=== PATIENT | female | born 1965 | race Caucasian/White ===

== ENCOUNTER 2019-09-28 22:49 | Observation (INO) | payer OTHER, SELFPAY ==
[2019-09-28 22:56] VITALS: BP 148/101; PULSE 67; RESP 18; TEMP 36.8; O2SAT 98; BMI 33.9
--- NOTE | 2019-09-28 22:58 | DI.RAD.S_ITS ---
PROCEDURE: XR CHEST 1V INDICATIONS: Chest pain TECHNIQUE: One view of the chest was acquired. COMPARISON: None. FINDINGS: Surgical changes and devices: Surgical clips in the left breast and axilla.. Lungs and pleura: Lungs are clear. No pleural effusions or pneumothorax. Mediastinum: Mediastinal contours appear normal. Heart size is normal. Bones and chest wall: No suspicious bony lesions. Overlying soft tissues appear unremarkable. IMPRESSION: No acute cardiopulmonary disease process. Dictated by: Veronika Fountain MD, PhD on 09/29/2019 at 8:22 Approved by: Veronika Fountain MD, PhD on 09/29/2019 at 8:23
--- NOTE | 2019-09-28 23:09 | ED_ITS ---
HPI - Chest Pain General Chief Complaint: Chest Pain Stated Complaint: CHEST PAIN Time Seen by Provider: 09/28/19 22:57 Source: patient Mode of arrival: Ambulatory Limitations: no limitations History of Present Illness HPI narrative: 54-year-old otherwise healthy female without any prior cardiac history here for evaluation of left-sided chest pressure and also tingling in her left arm. Patient states the pressure does radiate to her back. It is not a ripping or tearing sensation is a pressure sensation. No change with movement or palpation or breathing. Has never had anything like this before. She did take an aspirin prior to arrival here in the emergency department. She states she was sitting at work when the symptoms developed. They started within the past 2 hours prior to arrival to the ER. Has not changed since the onset of the symptoms. Related Data Home Medications Medication Instructions Recorded Confirmed Singulair 09/29/19 alprazolam [Xanax] 0.5 mg PO DAILY 09/29/19 09/29/19 aspirin 81 mg PO DAILY 09/29/19 09/29/19 gabapentin 800 mg PO BID 09/29/19 09/29/19 ibuprofen 800 mg PO BID 09/29/19 09/29/19 levothyroxine 09/29/19 omeprazole 20 mg PO DAILY 09/29/19 09/29/19 trazodone 09/29/19 venlafaxine [Effexor XR] 37.5 mg PO BEDTIME 09/29/19 09/29/19 Allergies Allergy/AdvReac Type Severity Reaction Status Date / Time No Known Drug Allergies Allergy Verified 09/28/19 23:47 Review of Systems Constitutional Constitutional: Denies fever(s) Cardiovascular Cardiovascular: Reports chest pain, Denies syncope, Denies rapid heart rate, Denies edema, Denies palpitations, Denies dyspnea and Denies dyspnea on exertion Respiratory Respiratory: Denies dyspnea and Denies dyspnea on exertion Gastrointestinal Gastrointestinal: Denies abdominal pain, Denies nausea and Denies vomiting Genitourinary Genitourinary: Denies dysuria Musculoskeletal Musculoskeletal: Denies myalgias and Denies arthralgias Integumentary/Breasts Skin/Breast: Denies rash Neurologic Neurologic: Denies behavioral changes and Denies syncope Psychiatric Psychiatric: Denies behavioral changes Endocrine Endocrine: Denies palpitations Hematologic/Lymphatic Hematologic/Lymphatic: Denies easy bleeding and Denies easy bruising Patient History Medical History Gastroesophageal reflux disease (Acute) Hypothyroid (Acute) Social History Smoking Status: Current every day smoker tobacco type: cigarettes alcohol intake frequency: a few times a month Substance Use Type: marijuana Exam Initial Vital Signs Initial Vital Signs: Vital Signs Temperature 98.3 F 09/28/19 22:56 Pulse Rate 67 09/28/19 22:56 Respiratory Rate 18 09/28/19 22:56 Blood Pressure 148/101 H 09/28/19 22:56 Pulse Oximetry 98 09/28/19 22:56 Const General: cooperative, comfortable and well developed Orientation: alert, awake and oriented x3 HENMT Head: normal to inspection and normocephalic Resp Effort & Inspection: normal respiratory effort Auscultation: clear to auscultation bilaterally Cardio Rate: regular rate Rhythm: regular rhythm Pulses: radial pulses present GI Inspection: non-distended Palpation: soft, No firm and No tender Skin Lesions: no lesions Rashes: no rashes Neuro General: alert, awake and oriented x3 Cognition: normal cognition Speech: speech normal Motor: muscle tone normal throughout Sensory Exam: no sensory deficits noted Extrem General: normal to inspection and capillary refill normal Psych Appearance: grossly normal and well kempt Scores GCS Jeanie coma scale eye opening: Spontaneous Jeanie coma scale verbal response: Orientated Jeanie coma scale motor response: Obey commands Jeanie coma scale total score: 15 HEART Score Heart Score history: Highly Suspicious Heart Score EKG: Normal Heart Score Age: 45-64 years old Heart Score risk factors: No known risk factors Heart Score troponin: < or = to normal limit Heart Score Total: 3 Course Orders Ordered: ED Orders 09/28/19 22:55 EKG-12 Lead Routine 09/28/19 22:58 XR chest 1V Stat EKG-12 Lead Stat 09/28/19 23:05 Complete Blood Count AUTO DIFF Stat Comprehensive Metabolic Panel Stat Lipase Stat Troponin & CK Cardiac Panel Stat 09/28/19 23:56 EKG-12 Lead Stat 09/29/19 00:02 EKG-12 Lead Routine Sodium Chloride (Normal Saline 0.9%) 1,000 mls @ 150 mls/hr IV CONT ABDULKADIR Last Admin: 09/28/19 23:27 Dose: 150 mls/hr Documented by: SAL Nitroglycerin (Nitrostat) 0.4 mg SL [id number] PRN PRN Reason: Chest Pain Last Admin: 09/28/19 23:50 Dose: 0.4 mg Documented by: Admin: 09/28/19 23:36 Dose: 0.4 mg Documented by: SAL Discontinued Medications Aspirin (Aspirin Chew) 324 mg PO NOW ONE Stop: 09/28/19 22:59 Last Admin: 09/28/19 23:28 Dose: Not Given Documented by: SAL Nitroglycerin (Nitro-Bid) 1 inch TOP NOW ONE Stop: 09/28/19 23:55 Last Admin: 09/28/19 23:55 Dose: 1 inch Documented by: SAL Vital Signs Vital signs: Vital Signs - 8 hr 09/28/19 22:56 09/28/19 23:35 09/28/19 23:36 Temperature 98.3 F Pulse Rate 67 58 L 64 Respiratory Rate 18 24 Blood Pressure 148/101 H 143/92 H Blood Pressure [Left Arm] 143/92 H Pulse Oximetry 98 94 09/28/19 23:50 09/28/19 23:55 09/29/19 00:05 Temperature Pulse Rate 61 63 58 L Respiratory Rate 18 Blood Pressure 123/64 123/64 Blood Pressure [Left Arm] 117/64 Pulse Oximetry 100 09/29/19 00:19 Temperature Pulse Rate 57 L Respiratory Rate 18 Blood Pressure Blood Pressure [Left Arm] 117/64 Pulse Oximetry 94 MDM - Chest Pain Lab Data Attestation: I reviewed the patient's lab results. Result diagrams: 09/28/19 23:05 09/28/19 23:05 Labs: Lab Results 09/28/19 09/28/19 Range/Units 23:05 23:05 WBC 5.6 (4.5-11.0) X10^3/uL RBC 4.23 (4.0-5.2) X10^6/uL Hgb 15.0 (12.0-16.0) g/dL Hct 43.0 (36-46) % MCV 101.7 H (80-100) fL MCH 35.4 H (26-34) PG MCHC 34.8 (30-36) % RDW 12.6 (11.6-14.8) % Plt Count 199 (150-400) X10^3/uL Neut % (Auto) 50.1 (50-75) % Lymph % (Auto) 34.6 (25-40) % [place] % (Auto) 10.6 (3-14) % Eos % (Auto) 3.9 (2-4) % Baso % (Auto) 0.8 (0-2) % Neut # (Auto) 2800 (3378-3621) /uL Lymph # (Auto) 1900 (1541-0357) /uL [place] # (Auto) 600 (0-900) /uL Eos # (Auto) 200 (0-450) /uL Baso # (Auto) 0 (0-100) /uL Sodium 139 (137-145) mmol/L Potassium 3.7 (3.4-5.1) mmol/L Chloride 107 (98-107) mmol/L Carbon Dioxide 25 (22-32) mmol/L BUN 18 H (7-17) mg/dL Creatinine 1.10 H (0.52-1.04) mg/dL Estimated GFR 52.0 L (>60) mL/min BUN/Creatinine Ratio 16.4 (6-22) Glucose 108 H (70-100) mg/dL Calcium 10.1 (8.4-10.2) mg/dL Total Bilirubin 0.7 (0.2-1.3) mg/dL AST 31 (14-36) IU/L ALT 24 (<35) IU/L Alkaline Phosphatase 95 (38-126) U/L Total Creatine Kinase 150 H (30-135) U/L CK-MB (CK-2) 1.08 (<2.37) ng/mL CK-MB (CK-2) Rel Index 0.7 L (1.5-5.0) % Troponin I < 0.012 (0.01-0.034) ng/mL Total Protein 7.5 (6.3-8.2) g/dL Albumin 4.4 (3.5-5.0) g/dL Globulin 3.1 (1.7-4.1) g/dL Albumin/Globulin Ratio 1.4 (1.0-2.8) Lipase 162 (23-300) U/L Imaging Data Chest x-ray: Attestation: I personally reviewed and interpreted this imaging study as follows: My impression: No acute changes, no focal consolidations, no pneumonia ECG Data Attestation: I personally reviewed and interpreted this ECG as follows: Prior ECG tracings: not available for review Interpretation: Initial EKG Sinus rhythm Ventricular rate is 68 Has artifact Repeat EKG Sinus rhythm Ventricular rate is 61 Incomplete right bundle-branch block Normal QRS No ST T wave changes MDM Narrative Medical decision making narrative: Patient has no ST changes on her EKG. Troponin was negative however this was less than 3 hours after the onset of her symptoms. She did take an aspirin prior to arrival. She was expressing continue pains she was given 1 sublingual nitroglycerin which she states improved her pain from an 8/10 to a 4/10. This then started to worsen again she was given another sublingual nitro which again improved her symptoms. She was then given nitro paste which improved her symptoms tremendously. I do have a low suspicion for PE. Low suspicion for dissection. I do have a higher suspicion for ACS given her symptoms and her response to the nitro. I did discuss the case with Dr. Alexandra with cardiology at [facility] who stated that given the presentation that I told him and her EKG and a negative troponin that he did not feel she needed to be had a facility with catheterization capability. He thought that patient could be managed at our hospital with trending of the troponins and echocardiogram and stress testing tomorrow. He stated that they would be happy to be available for consultation. He stated they be happy to be available for transfer if patient's troponins were to be elevated or she were to have EKG changes or positive stress test. I discussed this with the patient. She expressed understanding. I did discuss the case with the night nurse practitioner who will admit the patient for further evaluation and treatment Discharge Plan Departure Patient Disposition: Admitted as Observation Clinical Impression: Chest pain Admit Date/Time: 09/29/19 00:35 Admit Provider: Berhane Freeman
--- NOTE | 2019-09-28 23:12 | PC.NURSE ---
arrived amblitory into er. reports waking up at 9pm for work and feeling not right. arrived to work at 11pm and her staff engouraged her to come in and be evaluated. she stated that the pain goes from her left chest and radiates into her back. Not reproducable upon palpation. Took 1 full dose aspirin befor coming in.
[2019-09-28 23:15] LABS: Add Manual Diff / Slide Review NO; Basophils Absolute Auto 0 /uL (0-100); Basophils Percent Auto 0.8 % (0-2); Eosinophils Absolute Auto 200 /uL (0-450); Eosinophils Percent Auto 3.9 % (2-4); Lymphocytes Absolute Auto 1900 /uL (1100-4500); Lymphocytes Percent Auto 34.6 % (25-40); Mean Corpuscular HGB Conc 34.8 % (30-36); Mean Corpuscular Hemoglobin 35.4 PG (26-34); Mean Corpuscular Volume 101.7 fL (80-100); Monocytes Absolute Auto 600 /uL (0-900); Monocytes Percent Auto 10.6 % (3-14); Neutrophils Absolute Auto 2800 /uL (1500-7000); Neutrophils Percent Auto 50.1 % (50-75); Platelet Count 199 X10^3/uL (150-400); Red Blood Cell Count 4.23 X10^6/uL (4.0-5.2); Red Cell Distribution Width 12.6 % (11.6-14.8); White Blood Cell Count 5.6 X10^3/uL (4.5-11.0)
[2019-09-28 23:23] LABS: Alanine Aminotransferase 24 IU/L (<35); Albumin 4.4 g/dL (3.5-5.0); Albumin Globulin Ratio 1.4 (1.0-2.8); Alkaline Phosphatase 95 U/L (38-126); Aspartate Aminotransferase 31 IU/L (14-36); BUN Creatinine Ratio 16.4 (6-22); Bilirubin Total 0.7 mg/dL (0.2-1.3); Blood Urea Nitrogen 18 mg/dL (7-17); Calcium 10.1 mg/dL (8.4-10.2); Carbon Dioxide 25 mmol/L (22-32); Chloride 107 mmol/L (98-107); Creatine Kinase 150 U/L (30-135); Globulin 3.1 g/dL (1.7-4.1); Glucose 108 mg/dL (70-100); HEMOLYSIS < 15 (0-50); Lipase 162 U/L (23-300); Potassium 3.7 mmol/L (3.4-5.1); Sodium 139 mmol/L (137-145); Total Protein 7.5 g/dL (6.3-8.2)
[2019-09-28] MEDS: SODIUM CHLORIDE 0.9% 1,000 ML 150 ML IV (23:27)
[2019-09-28 23:34] LABS: Troponin I < 0.012 ng/mL (0.01-0.034)
[2019-09-28 23:35] VITALS: BP 143/92; PULSE 58; RESP 24; O2SAT 94
[2019-09-28 23:36] VITALS: BP 143/92; PULSE 64
[2019-09-28] MEDS: NITROGLYCERIN 0.4 MG SL TAB SL ×2 (23:36→23:50)
[2019-09-28 23:38] LABS: CKMB % Relative Index 0.7 % (1.5-5.0); Creatine Kinase MB 1.08 ng/mL (<2.37)
[2019-09-28 23:50] VITALS: BP 123/64; PULSE 61
--- NOTE | 2019-09-28 23:53 | PC.NURSE ---
patient reports 8/10 chest pain reduced to 4/10 and started to increase again. second nitro given
[2019-09-28 23:55] VITALS: BP 123/64; PULSE 63
[2019-09-28] MEDS: NITROGLYCERIN OINT 1 INCH/GM OINT...G. TOP (23:55)
--- NOTE | 2019-09-28 23:57 | PC.NURSE ---
provider notified of response to nitro dose #1, order for nitro paste given
[2019-09-29] VITALS (13 sets, daily range): BP systolic 115–139; BP diastolic 64–76; PULSE 52–81; RESP 16–19; TEMP 36.1–36.8; O2SAT 94–100; BMI 33.9
--- NOTE | 2019-09-29 01:15 | PC.NURSE ---
normal saline to continue in acute care
--- NOTE | 2019-09-29 04:21 | P.HP_ITS ---
History of Present Illness History of Present Illness Date Patient Seen: 09/29/19 Time Patient Seen: 04:21 Chief complaint: CHEST PAIN Narrative: The patient is a 54-year-old female with PMH of GERD, hypothyroidism, tobacco dependence (current every day smoker), obesity (BMI 33.9), HLD, sarcoidosis, COPD / asthma, breast cancer (s/p lumpectomy, 10 counts of RTx, and chemotherapy; in remission x5 yrs), chemotherapy induced neuropathy, chronic back pain, insomnia, anxiety and depression. Patient presents out of concern for chest pain. Symtoms noted at between 8:30- 9:00 pm upon awakening. Patient reports waking up with left shoulder / left upper extremity ache. This progressed to pressure like discomfort in the chest w/ radiation to the back. Patient went to work. BP was checked at work on two separate occasions and noted to be 150/100 mmHg and 160/100 mmHg. Chest pain has persisted. Describes chest discomfort as an ache with pressure-like qual ity. She has taken a full dose of ASA and presented to the ED for further evaluation. Denies prior h/o HTN, dysrhythmia, or valvular heart disease. Reports associated symptoms of dizziness (with head rotation) and nausea (developed in the ED). Denies headache, change in vision, palpitations, diap horesis, or vomiting. Denies abdominal pain, diarrhea, and blood loss per rectum. Denies extremity heaviness, unilateral extremity weakness, or paresthesia. Denies peripheral edema, orthopnea, or PND. She does note some degree dyspnea with exertion, which has been worse in the past 2 days. Reports underlying history of sarcoidosis. She does follow with pulmonology, Dr. Bush. Reports history of tobacco dependence 1/2-1 ppd for 25 years. Currently smokes half pack per day. Recently has been wheezy. At home uses QVAR, but not consistently. Patient reports prior history of a stress test, approximately 5+ years ago for an episode of chest pain. She is unable to recall the results. No prior history of a cardiac catheterization. Family history significant for heart disease and stroke. Patient has taken 325 mg of ASA prior to ED presentation. She does take 81 mg ASA routinely. Reports underlying history of GERD, partially controlled. Patient uses 800 mg b.i.d. of ibuprofen daily for chronic back pain / bulging disks. Reports a history of anxiety and depression with co-morbid insomnia. At present time having home stressors. Reports step mother w/ a recent stroke and elderly father with memory issues, patient has been assisting with care. Denies having similar sensation in the past. Chest discomfort was relieved with two doses of nitro. Initial ED work-up revealed negative troponin. One of the EKG's w/ mild ST elevation. Patient chest pain free for the remainder of the diet. ED Presentation & Work-Up VS, 09/28/2019 at 2256. T 98.3F BP 148/101 HR 67 RR 18 SpO2 98% on RA. Labs, 09/28/19 @ 2305 WBC 5.6 Hgb 15.0 PLT 199 Na 139 K 3.7 Cl 107 Ca 10.1 ALB 4.4 Co2 25 BUN 18 Cr 1.1 GFR 52 BUN:Cr 16.4 GLU 108 TBili 0.7 AST 31 ALT 24 Lipase 162 CK (total) 150 Trop < 0.012 CXR (preliminary findngs), no acute cardiopulmonary findings EKG #1, 09/28 @ SR, incomplete R-BBB, ST elevation EKG #2, 09/29 @ 0002, SR (v-rate 61), incomplete R-BBB Patient History Medical History (Updated 09/29/19 @ 05:58 by SHILA Starr) Anxiety and depression (Chronic) Breast cancer (Chronic) Chemotherapy-induced neuropathy (Chronic) Chronic back pain (Chronic) COPD with asthma (Chronic) Gastroesophageal reflux disease (Acute) Hypothyroid (Acute) Insomnia secondary to depression with anxiety (Chronic) Sarcoidosis (Chronic) Surgical History (Updated 09/29/19 @ 05:58 by SHILA Starr) S/P lumpectomy, left breast (Acute) Family & Social History Family History (Updated 09/29/19 @ 06:00 by SHILA Starr) Mother Stroke Sister Heart attack Social History: household members significant other Prior Living Arrangements House Safety & Behavioral: Feels Safe in Current Yes Environment Been Physically Hurt or No Threatened By a Person Suicidal Ideation Description None Suicide Plan Description No Plan Tobacco & Substance use: Tobacco type cigarettes,cannabis/marijuana Smoking Status Current every day smoker alcohol intake frequency a few times a month Substance Use Type marijuana Meds Home Medications and Allergies Home Medications Medication Instructions Recorded Confirmed Type alprazolam [Xanax] 0.5 mg PO DAILY 09/29/19 09/29/19 History aspirin 81 mg PO DAILY 09/29/19 09/29/19 History gabapentin 900 mg PO BID 09/29/19 09/29/19 History ibuprofen 800 mg PO BID 09/29/19 09/29/19 History levothyroxine 137 mcg PO DAILY 09/29/19 09/29/19 History montelukast [Singulair] 10 mg PO BEDTIME 09/29/19 09/29/19 History omeprazole 20 mg PO DAILY 09/29/19 09/29/19 History rosuvastatin 40 mg PO BEDTIME 09/29/19 09/29/19 History trazodone 50 mg PO BEDTIME 09/29/19 09/29/19 History venlafaxine [Effexor XR] 37.5 mg PO BEDTIME 09/29/19 09/29/19 History Allergies Allergy/AdvReac Type Severity Reaction Status Date / Time No Known Drug Allergies Allergy Verified 09/28/19 23:47 Review of Systems Review of Systems ROS Unobtainable: All systems reviewed & are unremarkable except as noted in HPI and below Exam Vital Signs (past 8 hours): - 09/28/19 22:56 09/28/19 23:35 09/28/19 23:36 Temperature 98.3 F Pulse Rate 67 58 L 64 Respiratory Rate 18 24 Blood Pressure 148/101 H 143/92 H Blood Pressure [Left Arm] 143/92 H Pulse Oximetry 98 94 09/28/19 23:50 09/28/19 23:55 09/29/19 00:05 Temperature Pulse Rate 61 63 58 L Respiratory Rate 18 Blood Pressure 123/64 123/64 Blood Pressure [Left Arm] 117/64 Pulse Oximetry 100 09/29/19 00:19 09/29/19 01:28 Temperature 97.0 F L Pulse Rate 57 L 55 L Respiratory Rate 18 16 Blood Pressure 117/72 Blood Pressure [Left Arm] 117/64 Pulse Oximetry 94 94 Oxygen Delivery Method Room Air Oxygen Flow Rate 0 Narrative Exam Narrative: Constitutional: NAD Neurologic: AOx3, no focal neurological deficits Head: NC, AT Eyes: PERRL, EOMI, Ears: external ears normal, no otorrhea Nose: external nose normal, no rhinorrhea or epistaxis Throat: MMM, oropharynx w/o exudate Neck: no masses, lymphadenopathy, or JVD Chest / Respiratory: equal chest rise, unlabored respiratory effort, no tachypnea CTAB no rrw Heart / CV: S1S2, no murmur Abdomen / GI: round, NT, ND, + BS, no organomegaly : no suprapubic tenderness, no CVA Peripheral / Vascular: warm to touch, DP and PT pulses palpable, no edema Musc: full ROM of upper and lower extremities, adequate muscle tone and bulk Skin: no ecchymosis or suspicious lesions / ulcers Objective Labs Result Diagrams: 09/29/19 05:48 09/29/19 05:48 Labs: Laboratory Results - last 24 hr 09/28/19 09/28/19 23:05 23:05 WBC 5.6 RBC 4.23 Hgb 15.0 Hct 43.0 MCV 101.7 H MCH 35.4 H MCHC 34.8 RDW 12.6 Plt Count 199 Neut % (Auto) 50.1 Lymph % (Auto) 34.6 [place] % (Auto) 10.6 Eos % (Auto) 3.9 Baso % (Auto) 0.8 Neut # (Auto) 2800 Lymph # (Auto) 1900 [place] # (Auto) 600 Eos # (Auto) 200 Baso # (Auto) 0 Sodium 139 Potassium 3.7 Chloride 107 Carbon Dioxide 25 BUN 18 H Creatinine 1.10 H Estimated GFR 52.0 L BUN/Creatinine Ratio 16.4 Glucose 108 H Calcium 10.1 Total Bilirubin 0.7 AST 31 ALT 24 Alkaline Phosphatase 95 Total Creatine Kinase 150 H CK-MB (CK-2) 1.08 CK-MB (CK-2) Rel Index 0.7 L Troponin I < 0.012 Total Protein 7.5 Albumin 4.4 Globulin 3.1 Albumin/Globulin Ratio 1.4 Lipase 162 Assessment & Plan Assessment & Plan narrative: Patient is being admitted under observation status for evaluation of chest pain Chest pain, acute, present on admission, active S/S aching, pressure-like chest discomfort with radiation to left upper extremities and posterior torso. Relieved with 2 doses of nitro. EKG mild ST elevation, repeat negative. SR w/ R-BBB. Trop negative RF: HLD, obesity, 25 PYH of tobacco dependence, family h/o heart disease (sister w/ [place] at age 50). On ASA 81 mg QD. HEART Score 5 (hx 1+, initial EKG 1+, age 1+, RF >/3 2+, initial trop 0) TIME 2 of 3 (RF 1, ASA past 7 days 1, EKG (questionable ? if >/ 0.[address] deviation)) Patient had a stress test 5+ years ago for an episode of chest pain. - Telemetry monitoring - Trend troponin - Risk stratify: A1C, FLP - Keep NPO for stress test in am - Received 324 mg ASA prior to ED. Continue ASA 81 mg QD - Stress Test - Consider echo in the outpatient setting - F/U w/ cardiology on discharge BEN, suspected, present on admission, active - Cr 1.1 GFR, elevated for age and body mass. Current use of NSAIDs, ibuprofen 800 mg BID. Current smoker (25 PYH tobacco use). No h/o HTN or DM. At present time hypovolemic. - IVF, started on NS at 150 ml/hr in ED, will decrease rate to 100 ml/hr - UA to check for sediment and proteinuria - Recommend d/c use of NSAIDs altogether. Consider tylenol 1000 mg Q8H prn for back pain. - AM lab - BMP, Mg Exertional dyspnea, acute, present on admission, active - likely in the setting of COPD exacerbation; however, does have h/o pulm sarcoidosis - echo COPD w/ asthma, acute mild exacerbation, present on admission, active Extremely wheezy diminished on exam. Inconsistent with routine use of bronchodilators. At home on QVAR and albuterol. H/O pulmonary sarcoidosis. - Consult RT - QVAR 1 puff BID. - Scheduled DuoNeb Q6HWA x24 hours, then may convert to RATE protocol - Resume wanted lieu cast 10 mg daily, will schedule to be taken at night Hypovolemia, acute, present on admission, active - IVF Hypothyroidism, chronic condition, present on admission, active - Check TSH - Resume [employer] regimen of levothyroxine 137 mcg QD Hyperlipidemia, chronic condition, present on admission, active - FLP in am - Resume PT regimen of rosuvastatin 40 mg q.d. GERD, chronic condition, present on admission, active / partially controlled - Resume PT regimen of omeprazole 20 mg BID - Stop NSAID and tobacco use. Highly recommended. Anxiety with depression, chronic condition, present on admission, active / controlled - Resume [employer] regimen of venlofaxine 37.5 mg BID - Hold trazodone (takes for insomnia) Chemotherapy induced neuropathy, chronic condition, present on admission, stable - On gabapentin 900 mg BID. Hold for now d/t BEN. History of breast cancer, 5+ years in remission (by report), chronic condition, stable -treated with lumpectomy, radiation, chemotherapy Code status discussed with patient. Wishes to be full code. No formal health directive. Designates Home medications reviewed and reconciled accordingly. Patient's external record of medications filled also reviewed.
[2019-09-29] MEDS: LEVOTHYROXINE 137 MCG TABLET PO (06:03)
[2019-09-29 06:10] LABS: Add Manual Diff / Slide Review NO; Basophils Absolute Auto 0 /uL (0-100); Basophils Percent Auto 0.8 % (0-2); Eosinophils Absolute Auto 200 /uL (0-450); Eosinophils Percent Auto 3.6 % (2-4); Hemoglobin 14.2 g/dL (12.0-16.0); Lymphocytes Absolute Auto 1900 /uL (1100-4500); Lymphocytes Percent Auto 36.2 % (25-40); Mean Corpuscular HGB Conc 34.6 % (30-36); Mean Corpuscular Hemoglobin 35.6 PG (26-34); Mean Corpuscular Volume 102.9 fL (80-100); Monocytes Absolute Auto 600 /uL (0-900); Monocytes Percent Auto 10.6 % (3-14); Neutrophils Absolute Auto 2600 /uL (1500-7000); Neutrophils Percent Auto 48.8 % (50-75); Platelet Count 191 X10^3/uL (150-400); Red Blood Cell Count 3.98 X10^6/uL (4.0-5.2); Red Cell Distribution Width 12.7 % (11.6-14.8); White Blood Cell Count 5.3 X10^3/uL (4.5-11.0)
[2019-09-29 06:16] LABS: Hemoglobin A1C% w Est Avg Glu 5.3 % (4.0-6.0)
[2019-09-29 06:17] LABS: Blood Urea Nitrogen 17 mg/dL (7-17); Calcium 9.5 mg/dL (8.4-10.2); Carbon Dioxide 26 mmol/L (22-32); Chloride 109 mmol/L (98-107); Cholesterol 179 mg/dL (140-199); Glucose 96 mg/dL (70-100); HDL Cholesterol 50 mg/dL (40-60); HEMOLYSIS < 15 (0-50); LDL Cholesterol Calculated 100 mg/dL (<100); Potassium 4.5 mmol/L (3.4-5.1); Sodium 141 mmol/L (137-145); Triglycerides 145 mg/dL (35-150)
[2019-09-29 06:28] LABS: Troponin I < 0.012 ng/mL (0.01-0.034)
--- NOTE | 2019-09-29 06:41 | PC.ADMIT ---
Safe hand off from Santosh WINKLER, ED. Pt arrived on the unit at 0105 was able to transfer from stretcher to bed ambulating w/ 1 person assist. VSS, exception is pt has been shanda. Pt is on tele: 1st degree AV, Sinus shanda. Pt has nitro patch on Left upper chest. Pain level 2/10. Normal saline at 100ml/hr. Pt was educated about use of call light, bed is low and locked. [id number] Admission Note: The patient,Sweta Chen,54 y/o, was given written information regarding hospital policies, unit procedures and contact persons. Patient's smoking status: Current every day smoker. Vital Signs - 8 hr 09/28/19 22:56 09/28/19 23:35 09/28/19 23:36 Temperature 98.3 F Pulse Rate 67 58 L 64 Respiratory Rate 18 24 Blood Pressure 148/101 H 143/92 H Blood Pressure [Left Arm] 143/92 H Pulse Oximetry 98 94 09/28/19 23:50 09/28/19 23:55 09/29/19 00:05 Temperature Pulse Rate 61 63 58 L Respiratory Rate 18 Blood Pressure 123/64 123/64 Blood Pressure [Left Arm] 117/64 Pulse Oximetry 100 09/29/19 00:19 09/29/19 01:28 09/29/19 05:24 Temperature 97.0 F L 97.6 F Pulse Rate 57 L 55 L 52 L Respiratory Rate 18 16 18 Blood Pressure 117/72 122/72 Blood Pressure [Left Arm] 117/64 Pulse Oximetry 94 94 95
[2019-09-29 06:48] LABS: Thyroid Stimulating Hormone 0.03 uIU/mL (0.47-4.68)
--- NOTE | 2019-09-29 07:18 | DI.ECHO.S_ITS ---
[facility] +---------+ : : [address] : : : : [id number] : : : : Phone: [phone]+ Echocardiogram Report + + :Name: DICKSON FUNEZ Study Date: 09/29/2019 Height: 66 in : :[facility] Weight: 212 lb : : Gender: Female BSA: 2.1 m2 : :: 1965 Age: 54 yrs BP: 115/71 mmHg: :Reason For Study: EXERTIONAL DYSPNEA : :Ordering Physician: Matt : :Hospitalist Performed By: Jennifer Vital : :Referring: [place] : + + Interpretation Summary The left ventricle is normal in size. The ejection fraction is estimated to be 55-60%. There has been no significant change since the previous study. There are no focal wall motion abnormalities. Diastolic parameters suggest probable normal left ventricular diastolic function and normal filling pressures. The right ventricle is normal in size and function. Pulmonary artery pressures cannot be estimated because of the lack of a measurable TR jet velocity. Both atria are normal in size. There is no significant valvular heart disease. The aortic root is normal size. Procedure: A two-dimensional transthoracic echocardiogram with color flow and Doppler was performed. The study quality was technically adequate. Comparison is made with the echocardiogram of 08/20/2014. The patient was in normal sinus rhythm during the exam. Left Ventricle: The left ventricle is normal in size. There is normal left ventricular wall thickness. There is no ventricular septal defect visualized. The ejection fraction is estimated to be 55-60%. There has been no significant change since the previous study. There are no focal wall motion abnormalities. Diastolic parameters suggest probable normal left ventricular diastolic function and normal filling pressures. Right Ventricle: The right ventricle is normal in size and function. Atria: Both atria are normal in size. There is no Doppler evidence for an interatrial shunt. Mitral Valve: There is mild mitral annular calcification. There is trace mitral regurgitation. Aortic Valve: The aortic valve opens well. No aortic regurgitation is present. Tricuspid Valve: The tricuspid valve is not well visualized, but is grossly normal. There is a trace or physiologic amount of tricuspid regurgitation. Pulmonary artery pressures cannot be estimated because of the lack of a measurable TR jet velocity. Pulmonic Valve: The pulmonic valve is not well seen, but is grossly normal. There is a trace or physiologic amount of pulmonic regurgitation. There is no significant valvular heart disease. Great Vessels: The aortic root is normal size. The ascending aorta is normal in size. The aortic arch is normal in size. The IVC is of normal diameter and collapses greater than 50% with a sniff. This suggests a low right atrial pressure of 3 mm Hg. Pericardium/ Pleura There is no pericardial effusion. MMode/2D Measurements & Calculations LVIDd: 3.9 cm LVOT diam: 1.8 cm LVIDs: 2.8 cm Ao root diam: 3.0 cm FS: 29.2 % Aortic Jxn: 2.4 cm EPSS: 0.45 cm asc Aorta Diam: 2.5 cm IVSd: 0.69 cm Ao Arch Diam (Prox Trans): 2.4 cm LVPWd: 0.93 cm LV carlton. diameter/BSA (cm/m^2): 1.9 LV sys. diameter/BSA (cm/m^2): 1.4 LA A2 area: 16.2 cm2 RA long axis: 4.5 cm LA A4 area: 15.7 cm2 RA area: 12.7 cm2 LA length (vol): 5.0 cm RA vol: 30.4 ml LA vol: 43.0 ml RA : 14.8 ml/m2 LA vol index: 21.0 ml/m2 IVC diam: 1.8 cm RVD1 (basal): 2.8 cm RVD2 (mid): 1.8 cm TAPSE: 2.7 cm Doppler Measurements & Calculations Ao V2 max: 153.5 cm/sec LVOT Max Jonah: 109.3 cm/sec Ao V2 mean: 103.6 cm/sec LV V1 max P.8 mmHg Ao max P.4 mmHg LV V1 VTI: 27.5 cm Ao mean P.7 mmHg MACHO(I,D): 2.0 cm2 Ao V2 VTI: 36.8 cm MACHO(V,D): 1.9 cm2 sev ratio: 0.75 MACHO indexed to BSA (cm^2/m^2): 0.96 MV E max jonah: 82.6 cm/sec PA V2 max: 70.2 cm/sec MV A max jonah: 79.4 cm/sec PA V2 mean: 51.3 cm/sec MV E/A: 1.0 PA mean P.2 mmHg Med Peak E' Jonah: 8.3 cm/sec PA Accel Time: 0.16 sec E/E' med: 9.9 Lat Peak E' Jonah: 9.3 cm/sec E/E' lat: 8.9 E/e' average: 9.4 MV dec time: 0.23 sec MV P1/2t: 69.6 msec MV /2t max jonah: 82.6 cm/sec SV(LVOT): 72.6 ml MVA(2t): 3.2 cm2 Reading Physician:01:55 PM
[2019-09-29 08:27] LABS: Free T4, Direct Thyroxine 1.65 ng/dL (0.78-2.19)
[2019-09-29] MEDS: PANTOPRAZOLE 20 MG TABLET PO ×2 (08:37→20:05)
[2019-09-29] MEDS: ASPIRIN 81 MG CHEW TAB PO (08:37)
[2019-09-29] MEDS: VENLAFAXINE ER 37.5 MG CAP PO ×2 (08:37→20:06)
--- NOTE | 2019-09-29 08:40 | CM.DANOTE ---
DCP: Case received, EMR reviewed and met with patient. Introduced self and role. Was able to converse with patient in her room to obtain baseline history and activity information. DCP assessment/template completed with information currently available. Patient is a 54 year old female who admitted early this morning to the care of the hospitalist team. PCP: Dr. Dorman. Payer: confirmed: [facility]. Patient came to the hospital secondary to having chest pains According to notes, patient does not have cardiac history, but did have elevated blood pressure. She also has history of anxiety and depression. Met with patient in her room. Pleasant. 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 She resides in [place] with her life partner, Gabrielle. Patient mentioned that she had been at work, and had one of her co-workers check her blood pressure which was elevated. She was also having chest pressure. Patient stated, she has not had these symptoms before. P: DCP to continue to follow. Patient should not have any needs at discharge, and should be able to return home when she is medically stable and after testing is complete. Cheryl Mcfarlane, RN/Lab Coordinator
[2019-09-29] MEDS: SODIUM CHLORIDE 0.9% 1,000 ML 100 ML IV ×2 (08:44→18:47)
[2019-09-29] MEDS: INFLUENZA VACCINE 0.5 ML SYRINGE IM (08:53)
[2019-09-29 10:02] LABS: RBC Urine None Seen (0-5/HPF)
[2019-09-29 10:04] LABS: Appearance Urine UA CLEAR; Bilirubin Urine UA NEGATIVE (NEGATIVE); Color Urine UA YELLOW; Glucose Urine UA NEGATIVE (Negative); Ketones Urine UA NEGATIVE (NEGATIVE); Leukocyte Esterase Urine UA NEGATIVE (NEGATIVE); Nitrite Urine UA NEGATIVE (Negative); Occult Blood Urine UA NEGATIVE (Negative); Protein Urine UA NEGATIVE (Negative); Urobilinogen Urine UA 0.2 E.U./dL (0.2)
[2019-09-29 10:41] LABS: pH Urine UA 5.5 (4.5-8.0)
[2019-09-29 10:52] LABS: Bacteria Urine Occasional (0-1); Culture Indicated Urine Cult Not Indicated; Squamous Epithelial Cell Urine 1-5 /HPF (0-5/HPF); WBC Urine 0-1/HPF (0-5/HPF)
[2019-09-29] MEDS: ONDANSETRON 4 MG ODT SL (11:34)
[2019-09-29] MEDS: BECLOMETHASONE 40 MCG INH 10.6 GM 1 PUFF INH ×2 (12:04→22:35)
[2019-09-29] MEDS: ALBUTEROL/IPRATROPIUM 3 ML AMPUL INH ×2 (12:04→19:36)
[2019-09-29] MEDS: GABAPENTIN 300 MG CAPSULE PO (16:11)
[2019-09-29] MEDS: NITROGLYCERIN 0.4 MG SL TAB SL (20:04)
[2019-09-29] MEDS: ROSUVASTATIN 10 MG TABLET 40 MG PO (20:04)
[2019-09-29] MEDS: GABAPENTIN 300 MG CAPSULE 900 MG PO (20:05)
[2019-09-29] MEDS: MONTELUKAST 10 MG TABLET PO (20:06)
[2019-09-30] MEDS: SODIUM CHLORIDE 0.9% 1,000 ML 100 ML IV (00:10)
[2019-09-30] MEDS: ALBUTEROL/IPRATROPIUM 3 ML AMPUL INH ×2 (05:33→13:03)
[2019-09-30 05:34] VITALS: O2SAT 95
[2019-09-30] MEDS: BECLOMETHASONE 40 MCG INH 10.6 GM 1 PUFF INH (05:34)
[2019-09-30 06:00] VITALS: BP 126/70; PULSE 59; RESP 16; TEMP 36.6; O2SAT 97
[2019-09-30] MEDS: LEVOTHYROXINE 137 MCG TABLET PO (06:20)
[2019-09-30 07:50] VITALS: O2SAT 97
[2019-09-30 08:00] VITALS: BP 115/78; PULSE 60; RESP 16; TEMP 36.7; O2SAT 96
[2019-09-30] MEDS: VENLAFAXINE ER 37.5 MG CAP PO (09:02)
[2019-09-30] MEDS: ASPIRIN 81 MG CHEW TAB PO (09:02)
[2019-09-30] MEDS: GABAPENTIN 300 MG CAPSULE 900 MG PO (09:02)
[2019-09-30] MEDS: PANTOPRAZOLE 20 MG TABLET PO (09:02)
[2019-09-30 11:30] VITALS: BP 150/81; PULSE 60; RESP 18; TEMP 36.5; O2SAT 94
--- NOTE | 2019-09-30 13:20 | P.DS_ITS ---
History of Present Illness History of Present Illness Date Patient Seen: 09/30/19 Time Patient Seen: 13:21 Chief complaint: CHEST PAIN Narrative: As per SHILA Starr: The patient is a 54-year-old female with PMH of GERD, hypothyroidism, tobacco dependence (current every day smoker), obesity (BMI 33.9), HLD, sarcoidosis, COPD / asthma, breast cancer (s/p lumpectomy, 10 counts of RTx, and chemotherapy; in remission x5 yrs), chemotherapy induced neuropathy, chronic back pain, insomnia, anxiety and depression. Patient presents out of concern for chest pain. Symtoms noted at between 8:30- 9:00 pm upon awakening. Patient reports waking up with left shoulder / left upper extremity ache. This progressed to pressure like discomfort in the chest w/ radiation to the back. Patient went to work. BP was checked at work on two separate occasions and noted to be 150/100 mmHg and 160/100 mmHg. Chest pain has persisted. Describes chest discomfort as an ache with pressure-like quality. She has taken a full dose of ASA and presented to the ED for further evaluation. Denies prior h/o HTN, dysrhythmia, or valvular heart disease. Repo rts associated symptoms of dizziness (with head rotation) and nausea (developed in the ED). Denies headache, change in vision, palpitations, diaphoresis, or vomiting. Denies abdominal pain, diarrhea, and blood loss per rectum. Denies extremity heaviness, unilateral extremity weakness, or paresthesia. Denies peripheral edema, orthopnea, or PND. She does note some degree dyspnea with exertion, which has been worse in the past 2 days. Reports underlying history of sarcoidosis. She does follow with pulmonology, Dr. Bush. Reports history of tobacco dependence 1/2-1 ppd for 25 years. Currently smokes half pack per day. Recently has been wheezy. At home uses QVAR, but not consistently. Patient reports prior history of a stress test, approximately 5+ years ago for an episode of chest pain. She is unable to recall the results. No prior history of a cardiac catheterization. Family history significant for heart disease and stroke. Patient has taken 325 mg of ASA prior to ED presentation. She does take 81 mg ASA routinely. Reports underlying history of GERD, partially controlled. Patient uses 800 mg b.i.d. of ibuprofen daily for chronic back pain / bulging disks. Reports a history of anxiety and depression with co-morbid insomnia. At present time having home stressors. Reports step mother w/ a recent stroke and elderly father with memory issues, patient has been assisting with care. Denies having similar sensation in the past. Chest discomfort was relieved with two doses of nitro. Initial ED work-up revealed negative troponin. One of the EKG's w/ mild ST elevation. Patient chest pain free for the remainder of the diet. ED Presentation & Work-Up VS, 09/28/2019 at 2256. T 98.3F BP 148/101 HR 67 RR 18 SpO2 98% on RA. Labs, 09/28/19 @ 2305 WBC 5.6 Hgb 15.0 PLT 199 Na 139 K 3.7 Cl 107 Ca 10.1 ALB 4.4 Co2 25 BUN 18 Cr 1.1 GFR 52 BUN:Cr 16.4 GLU 108 TBili 0.7 AST 31 ALT 24 Lipase 162 CK (total) 150 Trop < 0.012 CXR (preliminary findngs), no acute cardiopulmonary findings EKG #1, 09/28 @ SR, incomplete R-BBB, ST elevation EKG #2, 09/29 @ 0002, SR (v-rate 61), incomplete R-BBB Discharge Providers Provider Date of admission: 09/29/19 00:35 Discharge Date: 09/30/19 Discharge provider: Amrik Betancourt DO Summary Hospital Course Discharge Diagnosis: 1. Chest pain, acute, present on admission, resolved. 2. Suspected BEN has been ruled out. 3. COPD with asthma, mild acute exacerbation, present on admission, resolved. 4. Hypothyroidism, chronic, present on admission 5. HLD, chronic, stable. 6. GERD, chronic, stable. 7. Anxiety with depression, chronic condition, present on admission, active / controlled 8. Chemotherapy induced neuropathy, chronic condition, present on admission, stable Hospital Course: Sweta Chen is a 54-year-old female with PMH of GERD, hypothyroidism, tobacco dependence (current every day smoker), obesity (BMI 33.9), HLD, sarcoidosis, COPD / asthma, breast cancer (s/p lumpectomy, 10 counts of RTx, and chemotherapy; in remission x5 yrs), chemotherapy induced neuropathy, chronic back pain, insomnia, anxiety and depression. She was admitted under observation status for chest pain. She underwent a nuclear stress test which was unremarkable. She had an echocardiogram which was also unremarkable. She should follow up with her primary care provider regarding a TSH of 0.03 and for further management. I believe she should also follow up with her oracle database manager for her sarcoidosis as this may be related to her symptoms of chest pain and dyspnea on exertion. She may need additional imaging and spirometry as an outpatient for further evaluation as determined by her primary care provider and oracle database manager. She had a mild asthma/COPD exacerbation on arrival, however she was not taking her QVAR regularly. This was resumed with marked improvement in symptoms. She has no need for a treatment of steroids. She was mildly hypertensive during her stay and will need to follow up with her primary care provider for further management. Her NSAID use is also likely affecting her blood pressure, and I advised her to try and cut down on her NSAID use as much as possible and to try Tylenol instead. Exam Vital Signs (past 8 hours): - 09/30/19 05:34 09/30/19 06:00 09/30/19 07:50 Temperature 97.8 F Pulse Rate 59 L Respiratory Rate 16 Blood Pressure 126/70 Pulse Oximetry 95 97 97 09/30/19 08:00 09/30/19 11:30 Temperature 98.1 F 97.7 F Pulse Rate 60 60 Respiratory Rate 16 18 Blood Pressure 115/78 150/81 H Pulse Oximetry 96 94 Oxygen Delivery Method Room Air Oxygen Flow Rate 0 Narrative Exam Narrative: GENERAL APPEARANCE: Obese female. Well developed, well nourished, in no acute distress. SKIN: Inspection of the skin reveals no rashes, ulcerations or petechiae. HEENT: The sclerae were anicteric and conjunctivae were pink and moist. Extraocular movements were intact and pupils were equal, round with normal accommodation. External inspection of the ears and nose showed no scars, lesions, or masses. Lips, teeth, and gums showed normal mucosa. The oral mucosa, hard and soft palate, tongue and posterior pharynx were unremarkable. NECK: Supple and symmetric. There was no thyroid enlargement, and no tenderness, or masses were felt. CHEST: Normal AP diameter and normal contour without any kyphoscoliosis. LUNGS: Auscultation of the lungs revealed no wheezes, rhonchi, or rales. CARDIOVASCULAR: There was a regular rate and rhythm without any murmurs, gallops, rubs. Peripheral pulses were 2+ and symmetric. ABDOMEN: Soft and nontender with normal bowel sounds. No ascites was noted. MUSCULOSKELETAL: There was no tenderness or effusions noted. Muscle strength and tone were normal. EXTREMITIES: No cyanosis, clubbing or edema. NEUROLOGIC: Alert and oriented x 3. Normal affect. Gait was normal. Strength is +5/5 in the Upper Extremities and Lower Extremities Bilaterally. Sensation to touch was normal. Objective Labs Result Diagrams: 09/29/19 05:48 09/29/19 05:48 Discharge Plan Discharge Plan Patient Disposition: Home Discharge comment: You were admitted to the hospital with chest pain. You underwent a nuclear stress test which was unremarkable. You had an echocardiogram that was also normal. Your TSH was slightly low at 0.03, but your free T4 was normal. Your LDL was 100, and your A1c value was 5.3%. You sh ould follow up with your primary care provider to see if dose adjustments are necessary for your levothyroxine. Continue to take the omeprazole, and try and limit your ibuprofen use as much as possible back pain. You should also follow up with your oracle database manager, who may want to perform a pulmonary function test or other imaging given your shortness of breath and sarcoidosis. Discharge Med Rec/Prescriptions Prescriptions: Continued venlafaxine [Effexor XR] 37.5 mg Capsule,Extended Release 24hr 37.5 mg PO BEDTIME RF: 0 trazodone 50 mg Tablet 50 mg PO BEDTIME RF: 0 ibuprofen 800 mg Tablet 800 mg PO BID RF: 0 alprazolam [Xanax] 0.5 mg Tablet 0.5 mg PO DAILY RF: 0 gabapentin 800 mg Tablet 900 mg PO BID RF: 0 omeprazole 20 mg Capsule,Delayed Release(Dr/Ec) 20 mg PO DAILY RF: 0 aspirin 81 mg Tablet,Chewable 81 mg PO DAILY RF: 0 montelukast [Singulair] 10 mg Tablet 10 mg PO BEDTIME RF: 0 levothyroxine 137 mcg PO DAILY RF: 0 rosuvastatin 40 mg Tablet 40 mg PO BEDTIME RF: 0 Provider Discharge Instructions Diet: Diet as Tolerated and Regular Activity: No restrictions Discharge Data Attending Provider: Berhane Freeman Admit Date/Time: 09/29/19 00:35
--- NOTE | 2019-09-30 14:25 | PM.TREADMILL ---
Cardiac Stress Test Report Referral & Results Date Patient Seen: 09/30/19 Time Patient Seen: 11:45 Requesting provider: Berhane Freeman Indication: Chest pain Rest ECG: NSR Procedure Note: After both written and verbal informed consent the patient had an IV started by the diagnostic imaging RN and then was hooked up to the treadmill monitoring system. Markedly reduced exercise capacity. No chest pain. Complained of fatigue during the 2nd David protocol stage and we converted to walking Lexiscan. Complained of asthma and panic symptoms within 1 minutes of Naye material injection. Test halted due to patient distress. No change in EKG during exercise. Impression: Suboptimal Naye protocol. Will await perfusion imaging. Likely has noncardiac factors contributing to symptoms. Please note: Actual ECG tracings can be found in the PACS system.
--- NOTE | 2019-09-30 15:26 | DI.NM.S_ITS ---
DATE OF SERVICE: 09/30/2019 PROCEDURE PERFORMED: Exercise converted to pharmacologic stress only myocardial perfusion imaging with gating to assess ejection fraction and regional wall motion. INDICATIONS: The patient is an 54-year-old female admitted with chest discomfort. ORDERING PROVIDER: SHILA Starr CARDIAC STRESS: The patient was initially stressed by treadmill but was able to exercise for only 4 minutes, achieving a maximum heart rate of only 109 bpm. She had no chest discomfort and there were no EKG changes with this. Because of her blunted heart rate response, she was converted to a pharmacologic stress by infusion of 0.4 mg of regadenoson, augmented by walking on the treadmill. With this, she develop symptoms of asthma and panic attack but no chest discomfort. Her resting ECG is normal and there are no significant ST-segment shifts to suggest ischemia. No obvious arrhythmias were seen. Per protocol, 23.4 mCi of technetium-99 Myoview was injected and the patient was imaged 15 minutes later using a gated SPECT acquisition protocol. Given the normal perfusion imaging on the prone images, it was felt that resting images were not needed. FINDINGS: 1. Raw Data: There is fair myocardial tracer uptake with prominent breast shadows noted that clearly produce some attenuation. The lung/heart ratio is mildly elevated at 0.47 which can be a sign of pulmonary congestion but is nonspecific with the use of vasodilator stress. 2. Quantitative Gated SPECT: Post stress ejection fraction is estimated at 82% without any focal wall motion abnormality. Specifically, the anterior wall appears to have brisk contractility. End-diastolic volume is 92 mL. 3. Myocardial Perfusion Imaging: Post stress supine images shows a fairly normal myocardial perfusion pattern with a mild perfusion defect in the mid- anterior wall but sparing the distal anterior wall and apex in a pattern that would be consistent with breast attenuation artifact, supported by its complete resolution on the prone position which show a completely normal perfusion pattern. There are no other perfusion defects. On the basis of this, it was felt that resting images were not needed. IMPRESSION: 1. Normal myocardial perfusion study. 2. Probable significant breast attenuation artifact but no compelling evidence for myocardial ischemia or previous myocardial infarction. 3. Normal left ventricular systolic function without any focal regional wall motion abnormality. While the lung/heart ratio is mildly elevated at 0.47, this is non-specific in the setting of pharmacologic stress. Clinical correlation is recommended. 4. Significantly reduced exercise capacity but no angina or ECG evidence of ischemia with exercise or pharmacologic stress. Sweta Chen - YOU/akin/ doc#: [id number]/job#: [id number] dd: 09/30/2019 13:04:00 dt: 09/30/2019 14:30:00 DICTATING MD/COPIES TO: Hubert Calvillo MD; SHILA Starr COPIES MNE: LEVI CLEMENTS
[2019-10-02 08:56] LABS: Triiodothyronine T3 Total 92 ng/dL (76-181)
== END 2019-09-30 14:15 | disposition home or self-care (01) ==
LOC: ED 09-29 00:32 → AC 09-29 00:36
PROVIDERS: Internal Medicine; Admitting Provider Nurse Practitioner Gerontology; Emergency Provider Emergency Medicine; Visit Provider Nurse Practitioner Gerontology
DX: R07.9 Chest pain, unspecified (principal); F17.210 Nicotine dependence, cigarettes, uncomplicated; K21.9 Gastro-esophageal reflux disease without esophagitis; E03.9 Hypothyroidism, unspecified; E66.9 Obesity, unspecified; Z68.33 Body mass index [BMI] 33.0-33.9, adult; J44.9 Chronic obstructive pulmonary disease, unspecified; Z23 Encounter for immunization; F41.9 Anxiety disorder, unspecified; F32.9 Major depressive disorder, single episode, unspecified; M54.9 Dorsalgia, unspecified; G47.00 Insomnia, unspecified; R06.09 Other forms of dyspnea; J44.1 Chronic obstructive pulmonary disease with (acute) exacerbation; J45.909 Unspecified asthma, uncomplicated; E86.1 Hypovolemia; G62.9 Polyneuropathy, unspecified
CPT/HCPCS: 36415; 71045; 78451; 80048; 80053; 80061; 81001; 82550; 82553; 83036; 83690; 84439; 84443; 84480; 84484; 85025; 90471; 90656; 93005; 93010; 93016; 93017; 93018; 94640; 94760; 96360; 96361; 99283; 99285; G0378; A9502; C8929; J2785; Q2038